=== PATIENT | male | born 1970 | race Caucasian/White ===

== ENCOUNTER 2019-07-01 12:52 | Emergency (ER) | payer BC, OTHER ==
[2019-07-01] MEDS ORDERED: Diphtheria,Pertussis(Acell),Tetanus Vaccine 0.5 ML Syringe ONE (13:13)
[2019-07-01] MEDS ORDERED: ceFAZolin/Dextrose,Iso-Osmotic 2 GM/50 ML Duplex Bag IV ONE (13:13)
[2019-07-01] MEDS ORDERED: fentaNYL 100 MCG/2 ML SDV ONE ×2 (13:13→14:23)
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
--- NOTE | 2019-07-01 13:54 | CR ---
Right wrist: 2 views of the right wrist were obtained. Fracture and dislocation is noted within the distal radius involving the radius and ulna. Displacement of the distal wrist is anteriorly. Soft tissue air is noted compatible with open injury. Fracture also noted within the base of the 2nd metacarpal. Mild displacement is seen of this fracture. No additional bony abnormality is appreciated. Impression: 1. Fracture and dislocation involving the wrist. Fracture involves the distal radius and ulna. 2. Fracture involving the base of the 2nd metatarsal. 3. Other findings as described above. Diagnostic code #3 This report was dictated in MDT
--- NOTE | 2019-07-01 14:20 | CT ---
Head CT Technique: Multiple axial sections through the brain were obtained. Intravenous contrast wa utilized. Comparison: No prior intracranial imaging. Findings: Streak artifact is noted. Within this limitation, ventricles along with basal cisterns and sulci over the convexities are within normal limits for the patient's age. No abnormal parenchymal densities are seen. No evidence of intracranial hemorrhage. No midline shift or mass-effect is seen. Scalp injury is identified. No acute calvarial abnormality is appreciated. Fluid and mucosal thickening is seen within the left maxillary sinus. Nasal bone fracture is present. Impression: 1. Scalp injury. 2. Nasal bone fracture. 3. No acute intracranial abnormality is seen. Some artifact is noted diminishing details. Diagnostic code #3 This report was dictated in MDT
--- NOTE | 2019-07-01 14:20 | CT ---
CT cervical spine Technique: Multiple axial sections were obtained from above C1 inferiorly to the lower T3 level. Reconstructed sagittal and coronal images were obtained. Comparison: No prior cervical spine imaging is available. Findings: Moderate to severe disc space narrowing at C4-5 and C5-6 with posterior osteophytes and anterior osteophytes. Smaller anterior osteophytes are noted at C7-T1. Moderate narrowing is noted within the C6-7 disc as well as mild narrowing within the C3-4 disc. Vertebral bodies and posterior arches are intact. No fracture is seen. Mild left-sided neural foraminal stenosis is noted at C4-5. Moderate to severe narrowing is seen bilaterally at C5-6 within the neural foramina. Moderate to severe left-sided neural foraminal stenosis is noted at C6-7. No bony central canal stenosis is seen. No abnormal subluxation is appreciated. Mild degenerative change is noted throughout the apophyseal joints. Degenerative change is also noted within the uncovertebral joints throughout the cervical spine. Minimal scoliosis is noted. Impression: 1. Degenerative change as described above. 2. Nothing acute is appreciated on CT study of the cervical spine. Diagnostic code #2 This report was dictated in MDT
--- NOTE | 2019-07-01 14:24 | CT ---
CT facial bones Technique: Multiple axial sections through the facial bones were obtained. Reconstructed coronal and sagittal images were obtained. Findings: Nasal bone fracture is seen. Mandible not included completely on this study. Right and left globes are symmetric. Mucosal thickening and fluid is noted within the left maxillary sinus. Small inferior orbital floor blowout fracture is noted on the left side. Slight herniation of periorbital fat is seen inferiorly but no displacement of the rectus muscle is seen. No additional facial bone fracture is appreciated. Impression: 1. Nasal bone fracture. 2. Small inferior orbital floor blowout fracture on the left side. Small amount of inferiorly herniated periorbital fat is noted within this defect. No displacement of the rectus muscle is seen. 3. Mucosal thickening and fluid within the left maxillary sinus most likely relating to the trauma. 4. No additional abnormality is appreciated. Diagnostic code #3 This report was dictated in MDT
--- NOTE | 2019-07-01 14:30 | CT ---
CT thoracic spine Technique: Multiple axial sections through the thoracic spine were obtained. Reconstructed coronal and sagittal images were obtained. Comparison: No priors thoracic spine imaging. Findings: Vertebral body heights are maintained. No fracture is appreciated. No abnormal subluxation is noted. No central canal stenosis or discrete neural foraminal stenosis is seen. Impression: 1. Nothing acute is appreciated on CT study of the thoracic spine. Diagnostic code #1 This report was dictated in MDT
--- NOTE | 2019-07-01 14:30 | CT ---
CT chest Technique: Multiple axial sections through the chest were obtained. Intravenous contrast was utilized. Opacified great vessels appear within normal limits by CT examination. Mediastinum shows no hematoma. No adenopathy is seen. No pericardial thickening is identified. Lungs are clear with no acute parenchymal change. No pleural effusions are seen. Bone window settings were reviewed no discrete rib fracture is appreciated. Impression: 1. Nothing acute is appreciated on CT study of the chest. Diagnostic code #1 CT abdomen and pelvis Technique: Multiple axial sections were obtained from above the dome of the diaphragm inferiorly through the pubic symphysis. Intravenous contrast was utilized. No oral contrast has been given. Comparison: No prior abdominal imaging is available. Findings: Liver contains no focal abnormality. Spleen appears within normal limits. Adrenal glands show no nodule. Pancreas appears within normal limits. Kidneys show symmetric contrast enhancement without hydronephrosis or mass. Gallbladder contains no calcified gallstones. Aorta shows no aneurysm. No retroperitoneal adenopathy or mesenteric abnormalities are seen. No pelvic mass or adenopathy is seen. No free fluid or inflammatory change is seen within the abdomen or pelvis. Bone window settings were reviewed which shows no discrete fracture within the hips or within the pelvis. No fracture is appreciated within the lumbar spine. Impression: 1. Nothing acute is appreciated on CT study of the abdomen and pelvis. Diagnostic code #1 This report was dictated in MDT
[2019-07-01] MEDS ORDERED: HYDROmorphone 1 MG/ML Syringe ONE ×2 (14:45→14:57)
[2019-07-01] MEDS ORDERED: LORazepam 2 MG/ML SDV ONE (14:59)
--- NOTE | 2019-07-01 15:15 | CR ---
Right hand: 2 views of the right hand were obtained. Distal radial and ulnar fractures are seen with dislocation. Fracture involving the base of the 2nd metacarpal is again noted. Lint artifact is seen. Questionable fracture within the distal phalanx of the 4th finger is noted. No additional abnormality is definitely appreciated within the hand. Impression: 1. Distal radial and ulnar fractures with dislocation at the wrist. 2. Fracture within the base of the 2nd metacarpal. 3. Questionable fracture within the distal phalanx of the 4th finger. 4. Artifact from splint decreases details of the study. Diagnostic code #3 This report was dictated in MDT
--- NOTE | 2019-07-01 15:15 | CT ---
CT lumbar spine Technique: Multiple axial sections were obtained through the lumbar spine. Reconstructed sagittal and coronal images were reviewed. Findings: Vertebral body heights and disc spaces are preserved. No lumbar spine fracture is seen. No traumatic disc herniation is noted. No central canal stenosis or neural foraminal stenosis is seen. No abnormal subluxation is seen. Impression: 1. Nothing acute is appreciated on CT study of the lumbar spine. Diagnostic code #1 This report was dictated in MDT
--- NOTE | 2019-07-01 15:15 | CR ---
Left hand: 2 views of the left hand were obtained. Fracture is identified within the base of the 2nd metacarpal. Articular extension is seen with displacement of the fracture fragment. No additional fracture or other bony abnormality is appreciated. Impression: 1. Displaced fracture involving the base of the left 2nd metacarpal. 2. Left hand exam is otherwise unremarkable. Diagnostic code #3 This report was dictated in MDT
== END 2019-07-01 15:40 ==
LOC: JD.ED 12:52
DX: S52.601B Unspecified fracture of lower end of right ulna, initial encounter for open fracture type I or II (principal); S52.501B Unspecified fracture of the lower end of right radius, initial encounter for open fracture type I or II; S02.32XA Fracture of orbital floor, left side, initial encounter for closed fracture; S02.2XXA Fracture of nasal bones, initial encounter for closed fracture; Z23 Encounter for immunization; V28.4XXA Motorcycle driver injured in noncollision transport accident in traffic accident, initial encounter
CPT/HCPCS: 29125; 36415; 70450; 70450-26; 70486; 70486-26; 71260; 71260-26; 72125; 72125-26; 72128; 72128-26; 72131; 72131-26; 73100-26-RT; 73100-RT; 73120-26-LT; 73120-26-RT; 73120-LT; 73120-RT; 74177; 74177-26; 80053; 82150; 85025; 85610; 86850; 86900; 86901; 90471; 90715; 96365; 96375; 99284; 99285-25; J0690; J1170; J2060; J3010; J7120